=== PATIENT | female | born 1970 | race Caucasian/White ===

== ENCOUNTER 2017-02-23 12:28 | Observation (INO) | payer OTHER ==
[~2017-02-23] VITALS: Ht 167.6 cm; Wt 91.0 kg
[~2017-02-23 12:28] MED LIST: ADDE30TA PO; ALAV10TA10 PO; AMIT1TAB79; CARV12.5 PO; CHOL50006 PO; FISH120014; IPRAAER INH; LEVO50TA4 PO; LOVA20TA PO; MULTCAP13 PO; PRIL40CA PO; PROBCAP11; QUET1TAB10 PO; SPIR25 PO; TOPI1CAP25 PO; VITA10007 PO; [UNRECOGNIZED DRUG - OTHER]
[2017-02-23 12:29] VITALS: BP 156/84; PULSE 67; RESP 18; TEMP 99.2; O2SAT 97
--- NOTE | 2017-02-23 12:56 | PD ---
HPI Chief Complaint: Cardiac Complaint Time Seen by Provider: 12:45 Travel History International Travel<30 days: No Contact w/Intl Traveler<30days: No Traveled to known affect area: No History of Present Illness HPI This is a 46-year-old female presents for evaluation of chest pressure, dyspnea. Symptom onset 2 days ago. She reports that the chest pressure seems to be worse when lying down. She reports that 5 weeks ago she had left wrist surgery and has been sedentary since then so she does not know if the pressure is worse with exertion. She saw her primary care physician today and was referred here for further evaluation. She reports a history of hypertension, COPD, asthma, depression. No personal history of coronary artery disease. She denies cough or congestion, rash or recent travel, nausea or vomiting, diaphoresis, abdominal pain. She has no other complaints at this time. PFSH Past Medical History ADD: Yes Asthma: Yes Autoimmune Disease: No Anxiety: Yes Depression: Yes Heart Rhythm Problems: No Cancer: No Cardiovascular Problems: Yes High Cholesterol: No Chemotherapy: No Chest Pain: Yes Congestive Heart Failure: Yes COPD: Yes Cerebrovascular Accident: No Diabetes: No Diminished Hearing: No Endocrine: No Gastrointestinal Disorders: Yes GERD: Yes Genitourinary: No Hiatal Hernia: No Hypertension: Yes Immune Disorder: No Kidney Stones: Yes Musculoskeletal: Yes (curpal tunnel) Neurologic: No Psychiatric: Yes Reproductive: No Respiratory: Yes (ASTHMA, COPD) Migraines: Yes Radiation Therapy: No Renal Failure: Yes Seizures: No Sickle Cell Disease: No Sleep Apnea: No Thyroid Disease: No Ulcer: No : 4 Para: 3 : 1 Past Surgical History Abdominal Surgery: No AICD: No Arteriovenous Shunt: No Cardiac Surgery: No Ear Surgery: No Endocrine Surgery: No Eye Surgery: No Genitourinary Surgery: No Gynecologic Surgery: No Insulin Pump: No Joint Replacement: No Oral Surgery: No Pacemaker: No Thoracic Surgery: No Other Surgery: Yes (RIGHT ARM SURGERY. BREAST AUGMENTATION) Social History Alcohol Use: Yes (chronic alcoholic) Tobacco Use: Yes (ppd) Substance Use: No Allergies-Medications (Allergen,Severity, Reaction): Coded Allergies: cephalexin (Verified Allergy, Intermediate, 02/23/17) Reported Meds & Prescriptions Reported Meds & Active Scripts Active Levothyroxine (Levothyroxine Sodium) 50 Mcg Tab 50 Mcg PO DAILY Reported Calcium (Oyster Shell) 500 Mg Calcium (1250 Mg) Tab 1,000 Mg PO DAILY Whitney Stewart (Probiotic Product) 15 Billion Cell Cap 2 Cap PO DAILY Vitamin C (Ascorbic Acid) 1,000 Mg Tablet.er 1,000 Mg PO DAILY Super B with C (B Complex W/ C) 1 Cap Cap 1 Cap PO DAILY Vitamin D3 (Cholecalciferol) 2,000 Unit Cap 2,000 Units PO DAILY Fish Oil 1000 mg ([place]-3 Fatty Acids) 300 Mg-1,000 Mg Cap 1,000 Mg PO BID Risperdal (Risperidone) 1 Mg Tab 1 Mg PO Q12HR Megestrol (Megestrol Acetate) 40 Mg Tab 40 Mg PO BID Lamictal (Lamotrigine) 100 Mg Tab 100 Mg PO BID Prozac (Fluoxetine HCl) 20 Mg Cap 20 Mg PO DAILY Omeprazole 40 Mg Cap 40 Mg PO DAILY Percocet (Oxycodone-Acetaminophen) 5-325 mg Tab 1 Tab PO DAILY PRN Vistaril (Hydroxyzine Pamoate) 25 Mg Cap 25 Mg PO TID PRN Robaxin (Methocarbamol) 500 Mg Tab 500 Mg PO BID PRN Aldactone (Spironolactone) 25 Mg Tab 25 Mg PO TID Lovastatin 20 Mg Tab 20 Mg PO HS Coreg (Carvedilol) 12.5 Mg Tab 12.5 Mg PO BID Combivent Respimat Inh (Ipratropium-Albuterol Inh) 20-100 Fpc/Act Aero 1 Puff INH DAILY PRN Review of Systems Except as stated in HPI: all other systems reviewed are Neg Physical Exam Narrative GENERAL: Well-developed well-nourished female in no acute distress SKIN: Warm and dry. HEAD: Atraumatic. Normocephalic. EYES: Pupils equal and round. No scleral icterus. No injection or drainage. ENT: No nasal bleeding or discharge. Mucous membranes pink and moist. NECK: Trachea midline. No JVD. CARDIOVASCULAR: Regular rate and rhythm. No murmur appreciated. RESPIRATORY: No accessory muscle use. Clear to auscultation. Breath sounds equal bilaterally. GASTROINTESTINAL: Abdomen soft, non-tender, nondistended. Hepatic and splenic margins not palpable. MUSCULOSKELETAL: No obvious deformities. No clubbing. No cyanosis. No edema. Left short arm cast noted. NEUROLOGICAL: Awake and alert. No obvious cranial nerve deficits. Motor grossly within normal limits. Normal speech. PSYCHIATRIC: Appropriate mood and affect; insight and judgment normal. Data Data Last Documented VS Vital Signs Date Time Temp Pulse Resp B/P (MAP) Pulse Ox O2 Delivery O2 Flow Rate FiO2 02/23/17 14:18 70 16 121/72 (88) 97 Nasal Cannula 2.00 02/23/17 12:29 99.2 Orders Orders Electrocardiogram (02/23/17 12:52) Basic Metabolic Panel (Bmp) (02/23/17 12:52) Ckmb (Isoenzyme) Profile (02/23/17 12:52) Complete Blood Count With Diff (02/23/17 12:52) D-Dimer (02/23/17 12:52) Magnesium (Mg) (02/23/17 12:52) Prothrombin Time / Inr (Pt) (02/23/17 12:52) Act Partial Throm Time (Ptt) (02/23/17 12:52) Troponin I (02/23/17 12:52) Chest, Single Ap (02/23/17 12:52) Ecg Monitoring (02/23/17 12:52) Bilateral Bp Monitoring (02/23/17 12:52) Iv Access Insert/Monitor (02/23/17 12:52) Oximetry (02/23/17 12:52) Oxygen Administration (02/23/17 12:52) Aspirin Chew (Aspirin Chew) (02/23/17 13:00) Sodium Chloride 0.9% Flush (Ns Flush) (02/23/17 13:00) Ed Urine Pregnancytest Poc (02/23/17 12:52) Nitroglycerin Sl (Nitrostat Sl) (02/23/17 14:00) Admit Order (Ed Use Only) (02/23/17 14:38) Labs Laboratory Tests Test 02/23/17 13:00 White Blood Count 6.1 TH/MM3 Red Blood Count 3.66 MIL/MM3 Hemoglobin 12.2 GM/DL Hematocrit 35.7 % Mean Corpuscular Volume 97.5 FL Mean Corpuscular Hemoglobin 33.3 PG Mean Corpuscular Hemoglobin Concent 34.2 % Red Cell Distribution Width 14.0 % Platelet Count 283 TH/MM3 Mean Platelet Volume 7.1 FL Neutrophils (%) (Auto) 59.5 % Lymphocytes (%) (Auto) 28.2 % Monocytes (%) (Auto) 9.2 % Eosinophils (%) (Auto) 2.7 % Basophils (%) (Auto) 0.4 % Neutrophils # (Auto) 3.6 TH/MM3 Lymphocytes # (Auto) 1.7 TH/MM3 Monocytes # (Auto) 0.6 TH/MM3 Eosinophils # (Auto) 0.2 TH/MM3 Basophils # (Auto) 0.0 TH/MM3 CBC Comment DIFF FINAL Differential Comment Prothrombin Time 10.9 SEC Prothromb Time International Ratio 1.0 RATIO Activated Partial Thromboplast Time 28.0 SEC D-Dimer Quantitative (PE/DVT) 0.42 MG/L FEU Blood Urea Nitrogen 8 MG/DL Creatinine 0.81 MG/DL Random Glucose 110 MG/DL Calcium Level 8.8 MG/DL Magnesium Level 1.4 MG/DL Sodium Level 134 MEQ/L Potassium Level 4.0 MEQ/L Chloride Level 102 MEQ/L Carbon Dioxide Level 24.6 MEQ/L Anion Gap 7 MEQ/L Estimat Glomerular Filtration Rate 76 ML/MIN Total Creatine Kinase 55 U/L Troponin I LESS THAN 0.02 NG/ML MDM Medical Decision Making Medical Screen Exam Complete: Yes Emergency Medical Condition: Yes Medical Record Reviewed: Yes Differential Diagnosis Acute coronary syndrome, pulmonary embolism, angina, pneumothorax, pericarditis , myocarditis Narrative Course The patient was placed on ECG monitoring pulse oximetry. Twelve-lead EKG obtained. The patient was given aspirin, nitroglycerin. Plan is for lab work, chest x-ray. Initial lab work is reassuring. At this point in time the plan is to admit the patient to the chest pain center for several cardiac enzymes and rule out purposes. She is agreeable. Diagnosis Primary Impression: Chest pain Qualified Codes: R07.9 - Chest pain, unspecified Admitting Information Admitting Physician Requests: Josh Moralez Feb 23, 2017 12:56
[2017-02-23] MEDS ORDERED: SODIUM CHLORIDE 0.9% FLUSH 10 ML FLUSH IVF PRN (13:00)
[2017-02-23] MEDS ORDERED: ASPIRIN 81 MG CHEW TAB PO ONE (13:00)
[2017-02-23 13:10] VITALS: BP 141/78; PULSE 60; PULSE 63; RESP 16; O2SAT 98
[2017-02-23] MEDS ORDERED: LAMO100 PO (13:21)
[2017-02-23] MEDS ORDERED: PROB1CAP PO (13:21)
[2017-02-23] MEDS ORDERED: ASCO100029 PO (13:21)
[2017-02-23] MEDS ORDERED: PERC5TAB12 PO (13:21)
[2017-02-23] MEDS ORDERED: VITA2000 PO (13:21)
[2017-02-23] MEDS ORDERED: RISP1 PO (13:21)
[2017-02-23] MEDS ORDERED: MEGE40TA PO (13:21)
[2017-02-23] MEDS ORDERED: PROZ20CA11 PO (13:21)
[2017-02-23] MEDS ORDERED: FISH100020 PO (13:21)
[2017-02-23] MEDS ORDERED: VIST25CA PO (13:21)
[2017-02-23] MEDS ORDERED: OMEP40CA2 PO (13:21)
[2017-02-23] MEDS ORDERED: SUPECAP14 PO (13:21)
[2017-02-23] MEDS ORDERED: CALC12502 PO (13:21)
[2017-02-23] MEDS ORDERED: ROBA500T PO (13:21)
[2017-02-23 13:42] LABS: AUTOMATED NEUTROPHIL # 3.6 TH/MM3 (1.8-7.7); BASOPHIL % 0.4 % (0.0-2.0); EOSINOPHIL # 0.2 TH/MM3 (0-0.4); EOSINOPHIL % 2.7 % (0.0-4.0); HEMATOCRIT 35.7 % (35.0-46.0); HEMO FLAGS DIFF FINAL; LYMPH % 28.2 % (9.0-44.0); LYMPHOCYTE # 1.7 TH/MM3 (1.0-4.8); MEAN CELL VOLUME 97.5 FL (80.0-100.0); MEAN CORPUSCULAR HEMOGLOBIN 33.3 PG (27.0-34.0); MEAN CORPUSCULAR HGB CONC 34.2 % (32.0-36.0); MONO % 9.2 % (0.0-8.0); NEUT % 59.5 % (16.0-70.0); PLATELET COUNT 283 TH/MM3 (150-450); RED BLOOD COUNT 3.66 MIL/MM3 (4.00-5.30); WHITE BLOOD COUNT 6.1 TH/MM3 (4.0-11.0)
[2017-02-23 13:56] LABS: PROTHROMBIN TIME - PATIENT 10.9 SEC (9.8-11.6)
[2017-02-23 13:58] LABS: ANION GAP 7 MEQ/L (5-15); BICARBONATE 24.6 MEQ/L (21.0-32.0); BLOOD UREA NITROGEN 8 MG/DL (7-18); CHLORIDE 102 MEQ/L (98-107); GLOMERULAR FILTRATION RATE 76 ML/MIN (>89); MAGNESIUM 1.4 MG/DL (1.5-2.5); SODIUM (NA) 134 MEQ/L (136-145)
[2017-02-23] MEDS: NITROGLYCERIN 0.4 MG SL 25 TABS/BTL SL SCH ×2 (14:05→14:15)
[2017-02-23 14:07] LABS: CREATINE KINASE 55 U/L (26-192)
[2017-02-23 14:18] VITALS: BP 121/72; PULSE 70; RESP 16; O2SAT 97
--- NOTE | 2017-02-23 14:34 | RADRPT ---
EXAM DATE/TIME: 02/23/2017 13:42 [facility] COMPARISON: CHEST SINGLE AP, August 10, 2013, 20:25. INDICATIONS : Short of breath with mid sternal chest pressure. MEDICAL HISTORY : None. SURGICAL HISTORY : None. ENCOUNTER: Initial ACUITY: 1 day PAIN SCORE: 7/10 LOCATION: Bilateral chest FINDINGS: Compared to the previous cardiac silhouette is slightly more prominent. There is no congestive failu re. There is no pneumothorax. . Osseous structures are intact. CONCLUSION: Mild prominence cardiac silhouette otherwise negative. Nitin Khalil MD FACR on February 23, 2017 at 14:32 Board Certified Radiologist. This report was verified electronically.
[2017-02-23] MEDS ORDERED: PANTOPRAZOLE SOD 40 MG DELAYED RELEASE TAB PO SCH (15:15)
[2017-02-23] MEDS ORDERED: ACETAMINOPHEN 500 MG CPLT PO PRN (15:15)
[2017-02-23] MEDS ORDERED: METHOCARBAMOL 500 MG TAB PO PRN (15:15)
[2017-02-23] MEDS ORDERED: ALPRAZolam 0.25 MG TAB PO PRN (15:15)
[2017-02-23] MEDS ORDERED: ACETAMINOPHEN/HYDROcodone 325 MG/7.5 MG TAB PO PRN (15:15)
[2017-02-23] MEDS ORDERED: oxyCODONE/ACETAMINOPHEN 5 MG/325 MG TAB PO PRN (15:15)
[2017-02-23] MEDS ORDERED: KETOROLAC TROMETHAMINE 30 MG/ML (IVP) VIAL IVP ONE (15:15)
[2017-02-23] MEDS ORDERED: ONDANSETRON HCL 4 MG/2 ML VIAL IV PUSH PRN (15:15)
[2017-02-23 15:29] VITALS: BP 121/70
[2017-02-23] MEDS ORDERED: cloNIDine HCL 0.1 MG TAB PO PRN (15:30)
[2017-02-23] MEDS ORDERED: RESP: ALBUTEROL 2.5 MG/IPRATROPIUM 0.5 MG NEB (PRN) INH (15:30)
[2017-02-23] MEDS ORDERED: chlordiazePOXIDE 25 MG CAP PO PRN (15:30)
[2017-02-23 15:44] VITALS: BP 163/89; PULSE 63; RESP 16; TEMP 98.2; O2SAT 97
--- NOTE | 2017-02-23 15:58 | HHI.HP ---
[facility] Primary Care Physician Andre Farley MD Chief Complaint Chest pain History of Present Illness This is a 46-year-old female with history of hypertension, hyperlipidemia, hypothyroidism, COPD, chronic back pain that presents to ED to be evaluated for chest discomfort. States initially she was having intermittent chest discomforts that described as a left-sided pressure for the last week and a half. Happening at least 5 times to to 10 times a day. Nothing in particular would bring on the discomfort. When she would have the discomfort certain movements would seem to worsen it and it hurt more when the physician pressed on her chest during examination. Over last 3 days the discomfort has been constant. She has had shortness of breath with it. She is also had some diaphoresis. Denies prior history of CAD. We she's had a stress test but it was years ago and that was okay. Denies recent illness. Denies fever chills. Recently had surgery to her left wrist and that is in a cast. Review of Systems General: Patient denies fevers, chills recent, and recent travel HEENT: Patient denies headache, sore throat, difficulty swallowing. Cardiovascular: Has the chest discomfort as mentioned above. Denies sensation of heart beating rapidly or irregularly. No syncope. There was diaphoresis. Respiratory: Patient had shortness of breath. Denies inspirational chest discomfort. Denies coughing wheezing or hemoptysis. GI: Patient denies nausea, vomiting, diarrhea, abdominal pain, bloody stools. Musculoskeletal: Chronic back pain. Left wrist is in a cast. Patient denies joint pain or edema. Denies calf pain or edema. Neurovascular: Patient denies numbness, tingling, weakness in extremities. Denies headache. Endocrine: Denies polyuria and polydipsia. Hematologic: Denies easy bruising. Skin: Denies rash or itching. Past Family Social History Allergies: Coded Allergies: cephalexin (Verified Allergy, Intermediate, 02/23/17) Past Medical History Hypertension, hyperlipidemia, anxiety, bipolar disorder, PTSD, hypothyroidism, COPD, chronic back pain, and past history of tobacco abuse. Denies knowledge of coronary disease or diabetes. Past Surgical History Recently had left wrist surgery. Reported Medications Reported Meds & Active Scripts Active Levothyroxine (Levothyroxine Sodium) 50 Mcg Tab 50 Mcg PO DAILY Reported Calcium (Oyster Shell) 500 Mg Calcium (1250 Mg) Tab 1,000 Mg PO DAILY Whitney Stewart (Probiotic Product) 15 Billion Cell Cap 2 Cap PO DAILY Vitamin C (Ascorbic Acid) 1,000 Mg Tablet.er 1,000 Mg PO DAILY Super B with C (B Complex W/ C) 1 Cap Cap 1 Cap PO DAILY Vitamin D3 (Cholecalciferol) 2,000 Unit Cap 2,000 Units PO DAILY Fish Oil 1000 mg ([place]-3 Fatty Acids) 300 Mg-1,000 Mg Cap 1,000 Mg PO BID Risperdal (Risperidone) 1 Mg Tab 1 Mg PO Q12HR Megestrol (Megestrol Acetate) 40 Mg Tab 40 Mg PO BID Lamictal (Lamotrigine) 100 Mg Tab 100 Mg PO BID Prozac (Fluoxetine HCl) 20 Mg Cap 20 Mg PO DAILY Omeprazole 40 Mg Cap 40 Mg PO DAILY Percocet (Oxycodone-Acetaminophen) 5-325 mg Tab 1 Tab PO DAILY PRN Vistaril (Hydroxyzine Pamoate) 25 Mg Cap 25 Mg PO TID PRN Robaxin (Methocarbamol) 500 Mg Tab 500 Mg PO BID PRN Aldactone (Spironolactone) 25 Mg Tab 25 Mg PO TID Lovastatin 20 Mg Tab 20 Mg PO HS Coreg (Carvedilol) 12.5 Mg Tab 12.5 Mg PO BID Combivent Respimat Inh (Ipratropium-Albuterol Inh) 20-100 Longterm/Act Aero 1 Puff INH DAILY PRN Active Ordered Medications Current Medications Medications (Trade) Dose Ordered Sig/Nicol Route Start Time Stop Time Status Last Admin (NS Flush) 2 ml UNSCH PRN IVF 02/23/17 13:00 (Toradol Inj) 15 mg ONCE ONCE IVP 02/23/17 15:15 02/23/17 15:16 UNV (Tylenol) 500 mg Q4H PRN PO 02/23/17 15:15 UNV (Zofran Inj) 4 mg Q6H PRN IV PUSH 02/23/17 15:15 UNV (Protonix) 40 mg DAILY PO 02/23/17 15:15 UNV (Aspirin) 325 mg DAILY PO 02/24/17 09:00 UNV (Xanax) 0.25 mg Q8H PRN PO 02/23/17 15:15 UNV (Coreg) 12.5 mg BID PO 02/23/17 21:00 UNV (PROzac) 20 mg DAILY PO 02/24/17 09:00 UNV (LaMICtal) 100 mg BID PO 02/23/17 21:00 UNV (Synthroid) 50 mcg DAILY PO 02/24/17 09:00 UNV (Pravachol) 20 mg HS PO 02/23/17 21:00 UNV (Megace) 40 mg BID PO 02/23/17 21:00 UNV (Robaxin) 500 mg BID PRN PO 02/23/17 15:15 UNV (Percocet 5-325 Mg) 1 tab DAILY PRN PO 02/23/17 15:15 UNV (risperDAL) 1 mg Q12HR PO 02/23/17 21:00 UNV (Aldactone) 25 mg TID PO 02/23/17 18:00 UNV (Librium) 25 mg NOW PRN PO 02/23/17 15:30 UNV (Duoneb Neb) 1 ampule Q4HR NEB PRN INH 02/23/17 15:30 UNV (Catapres) 0.1 mg Q4H PRN PO 02/23/17 15:30 UNV Family History States that her father had an MO in his 40s. Social History Patient quit smoking cigarettes 5 years ago but prior that she smoked 1-1/2 packs of cigarettes daily for 40 years. Patient has on average drinks 15 ounces of vodka daily for the last 4 years ago prior that would drink about half a gallon of vodka for 10 years. Denies illicit drugs. She is disabled secondary to psychiatric illness. Physical Exam Vital Signs Vital Signs Date Time Temp Pulse Resp B/P (MAP) Pulse Ox O2 Delivery O2 Flow Rate FiO2 02/23/17 14:18 70 16 121/72 (88) 97 Nasal Cannula 2.00 02/23/17 13:10 63 16 141/78 (99) 98 Nasal Cannula 2.00 02/23/17 13:10 60 16 141/78 (99) 98 Nasal Cannula 2.00 02/23/17 13:10 98 Nasal Cannula 2.00 02/23/17 13:10 58 16 99 Nasal Cannula 2.00 02/23/17 12:29 99.2 67 18 156/84 (108) 97 Room Air Physical Exam GENERAL: This is a well-nourished, well-developed patient, in no apparent distress. Patient speaks in clear complete sentences. Patient is pleasant. HEENT: Head is atraumatic and normocephalic. Neck is supple without lymphadenopathy and trachea is midline. No JVD or carotid bruits. CARDIOVASCULAR: Regular rate and rhythm without murmurs, gallops, or rubs. RESPIRATORY: Clear to auscultation. Breath sounds equal bilaterally. No wheezes , rales, or rhonchi. Chest wall is tender worsening the discomfort she has been having. No use of accessory muscles. GASTROINTESTINAL: Abdomen is nontender, nondistended. Abdomen soft. No obvious pulsatile mass or bruit. No CVA tenderness. Strong femoral pulses bilaterally. Normal bowel sounds in all quadrants. MUSCULOSKELETAL: Left wrist is in a cast. Otherwise patient is moving upper and lower extremities freely. No calf tenderness or edema, no Homans sign. Strong pulses in upper and lower extremities. NEUROLOGICAL: Patient is alert and oriented. Cranial nerves 2-12 are grossly intact. No focal deficits and speech is clear. SKIN: No rash and turgor is normal. Laboratory Laboratory Tests Test 02/23/17 13:00 White Blood Count 6.1 Red Blood Count 3.66 Hemoglobin 12.2 Hematocrit 35.7 Mean Corpuscular Volume 97.5 Mean Corpuscular Hemoglobin 33.3 Mean Corpuscular Hemoglobin Concent 34.2 Red Cell Distribution Width 14.0 Platelet Count 283 Mean Platelet Volume 7.1 Neutrophils (%) (Auto) 59.5 Lymphocytes (%) (Auto) 28.2 Monocytes (%) (Auto) 9.2 Eosinophils (%) (Auto) 2.7 Basophils (%) (Auto) 0.4 Neutrophils # (Auto) 3.6 Lymphocytes # (Auto) 1.7 Monocytes # (Auto) 0.6 Eosinophils # (Auto) 0.2 Basophils # (Auto) 0.0 CBC Comment DIFF FINAL Differential Comment Prothrombin Time 10.9 Prothromb Time International Ratio 1.0 Activated Partial Thromboplast Time 28.0 D-Dimer Quantitative (PE/DVT) 0.42 Blood Urea Nitrogen 8 Creatinine 0.81 Random Glucose 110 Calcium Level 8.8 Magnesium Level 1.4 Sodium Level 134 Potassium Level 4.0 Chloride Level 102 Carbon Dioxide Level 24.6 Anion Gap 7 Estimat Glomerular Filtration Rate 76 Total Creatine Kinase 55 Troponin I LESS THAN 0.02 Result Diagram: 11/29/17 1300 02/23/17 1300 Imaging Last 48 hours Impressions Chest X-Ray 02/23/17 1252 Signed Impressions: Service Date/Time: Thursday, February 23, 2017 13:42 - CONCLUSION: Mild prominence cardiac silhouette otherwise negative. Nitin Khalil MD FACR Course EKG has sinus rhythm without significant ST segment depressions or elevations. Caprini VTE Risk Assessment Caprini VTE Risk Assessment: No/Low Risk (score <= 1) Caprini Risk Assessment Model Point Value = 1 Point Value = 2 Point Value = 3 Point Value = 5 Age 41-60 Minor surgery BMI > 25 kg/m2 Swollen legs Varicose veins or History of unexplained or recurrent spontaneous Oral contraceptives or hormone replacement Sepsis (< 1 month) Serious lung disease, including pneumonia (< 1 month) Abnormal pulmonary function Acute myocardial infarction Congestive heart failure (< 1 month) History of inflammatory bowel disease Medical patient at bed rest Age 61-74 Arthroscopic surgery Major open surgery (> 45 min) Laparoscopic surgery (> 45 min) Malignancy Confined to bed (> 72 hours) Immobilizing plaster cast Central venous access Age >= 75 History of VTE Family history of VTE Factor V Leiden Prothrombin [id number] Lupus anticoagulant Anticardiolipin antibodies Elevated serum homocysteine Heparin-induced thrombocytopenia Other congenital or acquired thrombophilia Stroke (< 1 month) Elective arthroplasty Hip, pelvis, or leg fracture Acute spinal cord injury (< 1 month) Prophylaxis Regimen Total Risk Factor Score Risk Level Prophylaxis Regimen 0-1 Low Early ambulation 2 Moderate Order ONE of the following: *Sequential Compression Device (SCD) *Heparin 5000 units SQ BID 3-4 Higher Order ONE of the following medications: *Heparin 5000 units SQ TID *Enoxaparin/Lovenox 40 mg SQ daily (WT < 150 kg, CrCl > 30 mL/min) *Enoxaparin/Lovenox 30 mg SQ daily (WT < 150 kg, CrCl > 10-29 mL/min) *Enoxaparin/Lovenox 30 mg SQ BID (WT < 150 kg, CrCl > 30 mL/min) AND/OR *Sequential Compression Device (SCD) 5 or more Highest Order ONE of the following medications: *Heparin 5000 units SQ TID (Preferred with Epidurals) *Enoxaparin/Lovenox 40 mg SQ daily (WT < 150 kg, CrCl > 30 mL/min) *Enoxaparin/Lovenox 30 mg SQ daily (WT < 150 kg, CrCl > 10-29 mL/min) *Enoxaparin/Lovenox 30 mg SQ BID (WT < 150 kg, CrCl > 30 mL/min) AND *Sequential Compression Device (SCD) Assessment and Plan Assessment and Plan * Chest pain: Her symptoms appear to be atypical. We'll try some Toradol told with the discomfort. Patient will be seen by Dr. Calos Huynh of cardiology and the chest pain center and undergo a Lexiscan myocardial perfusion stress test. That stress test was nonischemic, she will be charged home with instructions to follow-up with her PCP. * Hypertension: Continue current medication. * Hyperlipidemia: Continue current medication. * Alcohol abuse: Patient has been counseled importance of reducing her alcohol intake and seeking counseling on alcohol abuse. Patient is stable at this time. She is agreeable to this plan. Demario Thornton Feb 23, 2017 15:58
[2017-02-23] MEDS ORDERED: REGADENOSON INJ 0.4 MG/5 ML SYR ONE (16:29)
--- NOTE | 2017-02-23 17:47 | RADRPT ---
EXAM DATE/TIME: 02/23/2017 16:17 [facility] COMPARISON: No previous studies available for comparison. INDICATIONS : Chest pain and Dyspnea. Angina. Congestive heart failure. DOSE: 25.9 mCi Tc99m Myoview at stress. 8.1 mCi Tc99m Myoview at rest. 0.4 mg Lexiscan STRESS SYMPTOMS: Short of breath. EJECTION FRACTION: 64% MEDICAL HISTORY : Hypertension. Chronic obstructive pulmonary disease. Asthma. Smoker. SURGICAL HISTORY : None. ENCOUNTER: Initial ACUITY: 2 days PAIN SCALE: 1/10 LOCATION: Bilateral chest TECHNIQUE: The patient underwent pharmacologic stress with infusion of prescribed dose. Continuous ECG tracing was monitored during stress. Gated SPECT imaging was performed after stress and conventional SPECT i maging was performed at rest. The examination was performed on a SPECT/CT scanner, both attenuation and non-corrected datasets were reviewed. FINDINGS: DISTRIBUTION: The maximum perfused segment at stress is in the posterobasal wall. PERFUSION STUDY: Diminished activity anteriorly appears to reflect breast attenuation and small inferoapical apical pe rfusion abnormality is fixed and potentially related to myocardial thinning. GATED STUDY: There is intact wall motion and thickening without hypokinetic or dyskinetic segments. CONCLUSION: Probably normal exam RISK CATEGORY: Low (<1% Annual Mortality Rate) Dell Hall MD on February 23, 2017 at 17:42 Board Certified Radiologist. This report was verified electronically.
--- NOTE | 2017-02-23 17:48 | HHI.DCPOC ---
Discharge Care Plan Diagnosis: (1) COPD (chronic obstructive pulmonary disease) (2) Chest pain Goals to Promote Your Health * To prevent worsening of your condition and complications * To maintain your health at the optimal level Directions to Meet Your Goals Take your medications as prescribed Follow your dietary instruction Follow activity as directed Keep your appointments as scheduled Take your immunizations and boosters as scheduled If your symptoms worsen call your PCP, if no PCP go to Urgent Care Center or Emergency Room Smoking is Dangerous to Your Health. Avoid second hand smoke Call the 24-hour hour crisis hotline for domestic abuse at Demario Thornton Feb 23, 2017 17:48
[2017-02-23] MEDS ORDERED: SPIRONOLACTONE 25 MG TAB PO SCH (18:00)
[2017-02-23] MEDS ORDERED: risperiDONE 1 MG TAB PO SCH (21:00)
[2017-02-23] MEDS ORDERED: PRAVASTATIN SOD 20 MG TAB PO SCH (21:00)
[2017-02-23] MEDS ORDERED: lamoTRIgine 100 MG TAB PO SCH (21:00)
[2017-02-23] MEDS ORDERED: MEGESTROL ACETATE 40 MG TAB PO SCH (21:00)
[2017-02-23] MEDS ORDERED: CARVEDILOL 12.5 MG TAB PO SCH (21:00)
[2017-02-24] MEDS ORDERED: LEVOTHYROXINE SODIUM 50 MCG TAB PO SCH (06:00)
[2017-02-24] MEDS ORDERED: ASPIRIN 325 MG TAB PO SCH (09:00)
[2017-02-24] MEDS ORDERED: FLUoxetine HCL 20 MG CAP PO SCH (09:00)
--- NOTE | 2017-02-24 10:18 | TR ---
Date Performed: 02/23/2017 Time Performed: 16:39:11 DOCTOR: Jumana Lala DRUG LIST: CLINICAL HISTORY: REASON FOR TEST: REASON FOR ENDING: OBSERVATION: CONCLUSION: Lexiscan stress test was performed under standard four minute protocol. Radionuclid e was injected one minute prior to ending the test. No electrocardiographic abormalities were present to suggest ischemia. Nuclear imaging and interpretation are pending. COMMENTS:
--- NOTE | 2017-02-24 16:23 | EKG ---
Date Performed: 02/23/2017 Time Performed: 12:56:07 PTAGE: 46 years EKG: Sinus rhythm LOW QRS VOLTAGE IN PRECORDIAL LEADS MINIMAL ST DEPRESSION BORDERLINE ECG INTERPRETATION BASED ON A D JASMINEAULT AGE OF 40 YEARS Since PREVIOUS TRACING , no significant change noted PREVIOUS TRACIN08/10/2013 19.46 DOCTOR: Chuck Meléndez Interpretating Date/Time 02/24/2017 16:21:13
== END 2017-02-23 19:15 | disposition home or self-care (01) ==
LOC: NEPC 12:28 → NEDA 14:39 → NEPFCDU 15:42
PROVIDERS: ADMIT Internal Medicine Cardiovascular Disease; ATTEND Internal Medicine Cardiovascular Disease
DX: R07.89 Other chest pain (principal); J44.9 Chronic obstructive pulmonary disease, unspecified; I10 Essential (primary) hypertension; R94.31 Abnormal electrocardiogram [ECG] [EKG]; E78.5 Hyperlipidemia, unspecified; E03.9 Hypothyroidism, unspecified; M54.9 Dorsalgia, unspecified; R06.02 Shortness of breath; K21.9 Gastro-esophageal reflux disease without esophagitis; F31.9 Bipolar disorder, unspecified; F43.10 Post-traumatic stress disorder, unspecified; F10.10 Alcohol abuse, uncomplicated; Z72.0 Tobacco use; Z87.442 Personal history of urinary calculi
CPT/HCPCS: 71010; 78452; 80048; 82550; 83735; 84484; 84703; 85025; 85379; 85610; 85730; 93005; 93017; 96374; 99285; A9502; G0378; J1885; J2785